=== PATIENT | male | born 1950 | race Caucasian/White ===

== ENCOUNTER 2018-07-10 12:46 | Outpatient (REF) | payer MEDICARE, MEDICAID, SELFPAY ==
[2018-07-10 18:41] LABS: Anion Gap 12.4 mmol/L (3-11); BUN 18 mg/dL (7-18); CO2 25.6 mmol/L (21.0-32.0); CREATININE 1.56 mg/dL (0.70-1.30); Calcium 8.1 mg/dL (8.5-10.1); Chloride 106 mmol/L (98-107); Estimated GFR 44.48 (mL/min/1.73m2); Glucose 200 mg/dL (70-100); Potassium 4.5 mmol/L (3.5-5.1); Sodium 144 mmol/L (136-145)
== END 2018-07-10 13:06 ==
LOC: NCHCN 12:46
PROVIDERS: PCP Physician Assistant; Visit Provider Physician Assistant Medical
DX: N18.3 Chronic kidney disease, stage 3 (moderate) (principal); E11.9 Type 2 diabetes mellitus without complications
CPT/HCPCS: 80048

== ENCOUNTER 2019-01-16 14:35 | Outpatient (REF) | payer MEDICARE, MEDICAID, SELFPAY ==
[2019-01-16 19:10] LABS: Anion Gap 10.9 mmol/L (3-11); BUN 29 mg/dL (7-18); CO2 25.1 mmol/L (21.0-32.0); Chloride 104 mmol/L (98-107); Estimated GFR 35.32 (mL/min/1.73m2); Glucose 144 mg/dL (70-100); Potassium 5.3 mmol/L (3.5-5.1); Sodium 140 mmol/L (136-145)
== END 2019-01-16 14:55 ==
LOC: NCHCN 14:35
PROVIDERS: PCP Physician Assistant Medical; Visit Provider Physician Assistant Medical
DX: N18.3 Chronic kidney disease, stage 3 (moderate) (principal); I10 Essential (primary) hypertension; E11.9 Type 2 diabetes mellitus without complications
CPT/HCPCS: 80048

== ENCOUNTER 2019-04-03 14:19 | Outpatient (REF) | payer MEDICARE, MEDICAID, SELFPAY ==
[2019-04-03 19:04] LABS: Anion Gap 9.9 mmol/L (3-11); BUN 23 mg/dL (7-18); CO2 26.1 mmol/L (21.0-32.0); CREATININE 1.67 mg/dL (0.70-1.30); Calcium 8.8 mg/dL (8.5-10.1); Chloride 105 mmol/L (98-107); Glucose 171 mg/dL (70-100); Potassium 4.9 mmol/L (3.5-5.1); Sodium 141 mmol/L (136-145)
[2019-04-03 19:33] LABS: Hemoglobin A1C 7.4 % (4.5-6.2)
== END 2019-04-03 14:39 ==
LOC: NCHCN 14:19
PROVIDERS: PCP Physician Assistant Medical; Visit Provider Physician Assistant Medical
DX: E11.9 Type 2 diabetes mellitus without complications (principal); N18.3 Chronic kidney disease, stage 3 (moderate); I10 Essential (primary) hypertension
CPT/HCPCS: 80048; 83036

== ENCOUNTER 2020-04-29 17:38 | Outpatient (REF) | payer MEDICARE, SELFPAY ==
[2020-04-29 19:38] LABS: ALT 28 U/L (16-63); AST 18 U/L (15-37); Albumin 3.7 g/dL (3.4-5.0); Alkaline Phosphatase 69 U/L (46-116); Anion Gap 8.5 mmol/L (3-11); BUN 41 mg/dL (7-18); Bilirubin, Total 0.2 mg/dL (0.2-1.0); CO2 27.5 mmol/L (21.0-32.0); CREATININE 1.44 mg/dL (0.70-1.30); Calcium 9.3 mg/dL (8.5-10.1); Chloride 103 mmol/L (98-107); Glucose 154 mg/dL (74-106); Sodium 139 mmol/L (136-145); Total Protein 7.1 g/dL (6.4-8.2)
== END 2020-04-29 17:58 ==
LOC: NCHCN 17:38
PROVIDERS: PCP Physician Assistant Medical; Visit Provider Nurse Practitioner Family
DX: E11.9 Type 2 diabetes mellitus without complications (principal); I10 Essential (primary) hypertension
CPT/HCPCS: 80053

== ENCOUNTER 2020-08-19 14:44 | Outpatient (REF) | payer MEDICARE, SELFPAY ==
[2020-08-19 21:14] LABS: ALT 20 U/L (16-63); AST 16 U/L (15-37); Albumin 3.5 g/dL (3.4-5.0); Alkaline Phosphatase 66 U/L (46-116); Anion Gap 5.4 mmol/L (3-11); BUN 12 mg/dL (7-18); Bilirubin, Total 0.3 mg/dL (0.2-1.0); CO2 29.6 mmol/L (21.0-32.0); CREATININE 1.42 mg/dL (0.70-1.30); Calcium 8.9 mg/dL (8.5-10.1); Calculated LDL 111 mg/dL (<100); Chloride 108 mmol/L (98-107); Cholesterol 182 mg/dL (<200); Estimated GFR 49.29 (mL/min/1.73m2); Glucose 119 mg/dL (74-106); HDL Cholesterol 42 mg/dL (40-60); Potassium 4.5 mmol/L (3.5-5.1); Sodium 143 mmol/L (136-145); Total Protein 6.8 g/dL (6.4-8.2); Triglyceride 147 mg/dL (<150)
== END 2020-08-19 15:04 ==
LOC: NCHCN 14:44
PROVIDERS: PCP Physician Assistant Medical; Visit Provider Nurse Practitioner Family
DX: E11.9 Type 2 diabetes mellitus without complications (principal); E78.5 Hyperlipidemia, unspecified
CPT/HCPCS: 80053; 80061

== ENCOUNTER 2021-01-07 15:09 | Outpatient (REF) | payer MEDICARE, SELFPAY ==
[2021-01-07 15:31] LABS: Hemoglobin A1C 7.2 % (<5.7)
[2021-01-07 15:32] LABS: Anion Gap 9.3 mmol/L (3-11); BUN 23 mg/dL (7-18); CO2 27.7 mmol/L (21.0-32.0); CREATININE 1.7 mg/dL (0.70-1.30); Calcium 8.6 mg/dL (8.5-10.1); Calculated LDL 95 mg/dL (<100); Chloride 105 mmol/L (98-107); Cholesterol 173 mg/dL (<200); Estimated GFR 39.93 (mL/min/1.73m2); Glucose 112 mg/dL (74-106); HDL Cholesterol 44 mg/dL (40-60); Sodium 142 mmol/L (136-145); Triglyceride 172 mg/dL (<150)
== END 2021-01-07 15:10 | disposition home or self-care (01) ==
LOC: NCHCN 15:09
PROVIDERS: PCP Physician Assistant Medical; Visit Provider Nurse Practitioner Family
DX: E11.40 Type 2 diabetes mellitus with diabetic neuropathy, unspecified (principal); I10 Essential (primary) hypertension
CPT/HCPCS: 80048; 80061; 83036

== ENCOUNTER 2021-07-27 15:47 | Outpatient (REF) | payer MEDICARE, SELFPAY ==
[2021-07-27 20:31] LABS: Uric Acid 9.8 mg/dL (3.5-7.2)
[2021-07-29 12:49] LABS: COVID-19 RT-PCR UVMMC Result Negative (Negative)
== END 2021-07-27 15:48 | disposition home or self-care (01) ==
LOC: NCHCN 15:47
PROVIDERS: PCP Physician Assistant Medical; Visit Provider Nurse Practitioner Family
DX: M25.562 Pain in left knee (principal); R05.8 Other specified cough; Z20.822 Contact with and (suspected) exposure to COVID-19
CPT/HCPCS: U0003; U0005; 84550

== ENCOUNTER 2021-11-16 16:13 | Outpatient (REF) | payer MEDICARE, SELFPAY ==
[2021-11-16 20:14] LABS: ALT 44 U/L (16-63); AST 29 U/L (15-37); Albumin 3.5 g/dL (3.4-5.0); Alkaline Phosphatase 82 U/L (46-116); Anion Gap 7.3 mmol/L (3-11); BUN 21 mg/dL (7-18); Bilirubin, Total 0.2 mg/dL (0.2-1.0); CO2 27.7 mmol/L (21.0-32.0); CREATININE 1.9 mg/dL (0.70-1.30); Calcium 8.8 mg/dL (8.5-10.1); Chloride 106 mmol/L (98-107); Estimated GFR 35.02 (mL/min/1.73m2); Glucose 184 mg/dL (74-106); Potassium 4.8 mmol/L (3.5-5.1); Sodium 141 mmol/L (136-145); Total Protein 7.1 g/dL (6.4-8.2)
== END 2021-11-16 16:14 | disposition home or self-care (01) ==
LOC: NCHCN 16:13
PROVIDERS: PCP Physician Assistant Medical; Visit Provider Nurse Practitioner Family
DX: E11.40 Type 2 diabetes mellitus with diabetic neuropathy, unspecified (principal); N18.30 Chronic kidney disease, stage 3 unspecified
CPT/HCPCS: 80053

== ENCOUNTER 2022-03-01 15:22 | Outpatient (REF) | payer MEDICARE, SELFPAY ==
[2022-03-01 19:37] LABS: Anion Gap 11.7 mmol/L (3-11); BUN 36 mg/dL (7-18); CO2 26.3 mmol/L (21.0-32.0); Calcium 8.8 mg/dL (8.5-10.1); Chloride 104 mmol/L (98-107); Estimated GFR 33.01 (mL/min/1.73m2); Glucose 123 mg/dL (74-106); Sodium 142 mmol/L (136-145)
== END 2022-03-01 15:23 | disposition home or self-care (01) ==
LOC: LBN 15:22
PROVIDERS: PCP Physician Assistant Medical; Visit Provider Nurse Practitioner Family
DX: N18.32 Chronic kidney disease, stage 3b (principal)
CPT/HCPCS: 80048

== ENCOUNTER 2022-08-16 11:48 | Outpatient (REF) | payer MEDICARE, SELFPAY | END 2022-08-16 11:49 | disposition home or self-care (01) | LOC: NCHCN 11:48 | PROVIDERS: PCP Nurse Practitioner Family; Visit Provider Nurse Practitioner Family | DX: M10.9 Gout, unspecified (principal); N18.32 Chronic kidney disease, stage 3b | CPT/HCPCS: 84550 ==

== ENCOUNTER 2022-09-03 14:44 | Outpatient (REF) | payer MEDICARE, SELFPAY ==
[2022-09-03 19:33] LABS: Anion Gap 9.9 mmol/L (3-11); BUN 39 mg/dL (7-18); CO2 26.1 mmol/L (21.0-32.0); CREATININE 1.9 mg/dL (0.70-1.30); Calcium 9.1 mg/dL (8.5-10.1); Chloride 99 mmol/L (98-107); Estimated GFR 36.79 (mL/min/1.73m2); Glucose 269 mg/dL (74-106); Potassium 4.9 mmol/L (3.5-5.1); Sodium 135 mmol/L (136-145)
== END 2022-09-03 14:45 | disposition home or self-care (01) ==
LOC: NCHCN 14:44
PROVIDERS: PCP Nurse Practitioner Family; Visit Provider Nurse Practitioner Family
DX: N18.32 Chronic kidney disease, stage 3b (principal); M10.9 Gout, unspecified
CPT/HCPCS: 80048

== ENCOUNTER 2022-10-22 18:10 | Outpatient (REF) | payer MEDICARE, SELFPAY ==
[2022-10-22 19:15] LABS: Abs Immature Grans 0.04 10^3/uL (0.0-0.06); Absolute Basophil Count 0.03 10^3/uL (0.0-0.2); Absolute Eosinophil Count 0.26 10^3/uL (0.0-0.7); Absolute Lymphocyte Count 2.37 10^3/uL (1.2-3.4); Absolute Monocyte Count 0.93 10^3/uL (0.1-0.8); Absolute Neutrophil Count 5.69 10^3/uL (1.2-6.7); Basophils % 0.3; Eosinophils % 2.8; HCT 38.6 % (40.0-50.0); HGB 11.7 g/dL (13.5-17.5); Immature Grans % 0.4; Lymphocytes % 25.4; MCH 24.3 pg (27.0-33.0); MCHC 30.3 % (32.0-36.0); MCV 80 fL (80-95); MPV 10.5 fL (8.0-11.0); Neutrophils % 61.1; Platelet Count 251 10^3/uL (130-400); RBC 4.82 10^6/uL (4.36-5.78); RDW 16.8 % (11.8-14.1); RDW-SD 48.4 fL; WBC 9.32 10^3/uL (4.4-10.8)
[2022-10-22 19:50] LABS: Albumin 3.5 g/dL (3.4-5.0); Anion Gap 9.8 mmol/L (3-11); BUN 33 mg/dL (7-18); CO2 26.2 mmol/L (21.0-32.0); CREATININE 2.1 mg/dL (0.70-1.30); Calcium 8.9 mg/dL (8.5-10.1); Chloride 101 mmol/L (98-107); Estimated GFR 32.62 (mL/min/1.73m2); Ferritin 21 ng/mL (26-388); Glucose 326 mg/dL (74-106); Potassium 4.7 mmol/L (3.5-5.1); Sodium 137 mmol/L (136-145); Vitamin D 25 Total 18.7 ng/mL (30-100)
[2022-10-22 20:15] LABS: PHOSPHORUS 3.6 mg/dL (2.6-4.7)
[2022-10-22 20:23] LABS: Iron 53 ug/dL (65-175); Total Iron Binding Capacity 444 ug/dL (250-450); Transferrin Sat 12 % (20-55)
[2022-10-25 10:06] LABS: Parathyroid Hormone,Intact 76 pg/mL (19-88)
== END 2022-10-22 18:11 | disposition home or self-care (01) ==
LOC: NCHCN 18:10
PROVIDERS: PCP Nurse Practitioner Family; Visit Provider Nurse Practitioner Family
DX: N18.32 Chronic kidney disease, stage 3b (principal); E11.9 Type 2 diabetes mellitus without complications
CPT/HCPCS: 80048; 82306; 82040; 82728; 83540; 83550; 83970; 84100; 85025

== ENCOUNTER 2022-10-25 16:21 | Outpatient (REF) | payer MEDICARE, SELFPAY ==
[2022-10-25 20:02] LABS: COMMENT (LAB VIEW ONLY) 109.37 mg/dL
== END 2022-10-25 16:22 | disposition home or self-care (01) ==
LOC: NCHCN 16:21
PROVIDERS: PCP Nurse Practitioner Family; Visit Provider Nurse Practitioner Family
DX: N18.32 Chronic kidney disease, stage 3b (principal)
CPT/HCPCS: 82043; 82570

== ENCOUNTER 2023-08-31 09:14 | Outpatient (REF) | payer MEDICARE, SELFPAY ==
[2023-08-31 20:38] LABS: Abs Immature Grans 0.02 10^3/uL (0.0-0.06); Absolute Basophil Count 0.05 10^3/uL (0.0-0.2); Absolute Eosinophil Count 0.54 10^3/uL (0.0-0.7); Absolute Lymphocyte Count 2.63 10^3/uL (1.2-3.4); Absolute Monocyte Count 0.83 10^3/uL (0.1-0.8); Basophils % 0.6; Eosinophils % 6.3; HCT 42.1 % (40.0-50.0); HGB 13.7 g/dL (13.5-17.5); Immature Grans % 0.2; Lymphocytes % 30.7; MCH 30.3 pg (27.0-33.0); MCHC 32.5 % (32.0-36.0); MCV 93 fL (80-95); MPV 10.9 fL (8.0-11.0); Monocytes % 9.7; Neutrophils % 52.5; Platelet Count 208 10^3/uL (130-400); RBC 4.52 10^6/uL (4.36-5.78); RDW 14.2 % (11.8-14.1); RDW-SD 49.1 fL; WBC 8.57 10^3/uL (4.4-10.8)
[2023-08-31 20:47] LABS: Anion Gap 9.2 mmol/L (3-11); BUN 16 mg/dL (7-18); CO2 27.8 mmol/L (21.0-32.0); CREATININE 1.8 mg/dL (0.70-1.30); Calcium 8.9 mg/dL (8.5-10.1); Chloride 106 mmol/L (98-107); Estimated GFR 39.01 (mL/min/1.73m2); Glucose 213 mg/dL (74-106); Potassium 4.6 mmol/L (3.5-5.1); Sodium 143 mmol/L (136-145)
[2023-08-31 20:55] LABS: Hemoglobin A1C 7.6 % (<5.7)
== END 2023-08-31 09:15 | disposition home or self-care (01) ==
LOC: NCHCN 09:14
PROVIDERS: PCP Nurse Practitioner Family; Visit Provider Nurse Practitioner Family
DX: E11.40 Type 2 diabetes mellitus with diabetic neuropathy, unspecified (principal); N18.32 Chronic kidney disease, stage 3b; M10.9 Gout, unspecified
CPT/HCPCS: 80048; 83036; 85025

== ENCOUNTER 2024-07-31 16:45 | Outpatient (REF) | payer MEDICARE, SELFPAY ==
[2024-07-31 20:29] LABS: ALT 64 U/L (16-63); AST 37 U/L (15-37); Albumin 3.2 g/dL (3.4-5.0); Alkaline Phosphatase 139 U/L (46-116); Anion Gap 9.5 mmol/L (3-11); BUN 30 mg/dL (7-18); Bilirubin, Total 0.35 mg/dL (0.2-1.0); CO2 28.5 mmol/L (21.0-32.0); CREATININE 2.1 mg/dL (0.70-1.30); Calcium 9.2 mg/dL (8.5-10.1); Chloride 95 mmol/L (98-107); Estimated GFR 32.42 (mL/min/1.73m2); Potassium 5.3 mmol/L (3.5-5.1); Sodium 133 mmol/L (136-145); Total Protein 7.5 g/dL (6.4-8.2)
[2024-07-31 20:41] LABS: Glucose 655 mg/dL (74-106)
[2024-07-31 20:51] LABS: COMMENT (LAB VIEW ONLY) 33.09 mg/dL; Microalb ug/mg Crea 49.3 ug/mg Cr
== END 2024-07-31 16:46 | disposition home or self-care (01) ==
LOC: NCHCN 16:45
PROVIDERS: PCP Nurse Practitioner Family; Visit Provider Nurse Practitioner Family
DX: E11.40 Type 2 diabetes mellitus with diabetic neuropathy, unspecified (principal)
CPT/HCPCS: 80053; 82043; 82570

== ENCOUNTER 2024-08-27 16:09 | Outpatient (REF) | payer MEDICARE, SELFPAY ==
[2024-08-27 19:52] LABS: Anion Gap 7.2 mmol/L (3-11); BUN 22 mg/dL (7-18); CO2 28.8 mmol/L (21.0-32.0); CREATININE 1.7 mg/dL (0.70-1.30); Calcium 8.6 mg/dL (8.5-10.1); Chloride 109 mmol/L (98-107); Estimated GFR 41.52 (mL/min/1.73m2); Glucose 172 mg/dL (74-106); Potassium 4.9 mmol/L (3.5-5.1); Sodium 145 mmol/L (136-145)
== END 2024-08-27 16:10 | disposition home or self-care (01) ==
LOC: NCHCN 16:09
PROVIDERS: PCP Nurse Practitioner Family; Visit Provider Nurse Practitioner Family
DX: E11.40 Type 2 diabetes mellitus with diabetic neuropathy, unspecified (principal)
CPT/HCPCS: 80048

== ENCOUNTER 2025-08-01 12:02 | Outpatient (REF) | payer MEDICARE, SELFPAY ==
[2025-08-01 19:59] LABS: ALT 24 U/L (16-63); AST 18 U/L (15-37); Albumin 3.5 g/dL (3.4-5.0); Alkaline Phosphatase 92 U/L (46-116); Anion Gap 9.3 mmol/L (3-11); BUN 24 mg/dL (7-18); Bilirubin, Total 0.4 mg/dL (0.2-1.0); CO2 29.7 mmol/L (21.0-32.0); Calcium 9.0 mg/dL (8.5-10.1); Chloride 104 mmol/L (98-107); Cholesterol 164 mg/dL (<200); Glucose 158 mg/dL (74-106); HDL Cholesterol 41 mg/dL (>or=40); Potassium 4.6 mmol/L (3.5-5.1); Sodium 143 mmol/L (136-145); Total Protein 7.7 g/dL (6.4-8.2)
[2025-08-02 17:37] LABS: PSA, Diagnostic 1.8 ng/mL (<=6.5)
== END 2025-08-01 12:03 | disposition home or self-care (01) ==
LOC: NCHCN 12:02
PROVIDERS: PCP Nurse Practitioner Family; Visit Provider Nurse Practitioner Family
DX: I10 Essential (primary) hypertension (principal); N40.0 Benign prostatic hyperplasia without lower urinary tract symptoms
CPT/HCPCS: 80053; 80061; 84153